=== PATIENT | female | born 1995 | race Caucasian/White ===

== ENCOUNTER 2017-05-14 11:37 | Emergency (ER) | payer MEDICAID, SELFPAY ==
[2017-05-14] MEDS ORDERED: Fluorescein Opthalmic Strip ONE (12:25)
[2017-05-14] MEDS ORDERED: Proparacaine 0.5% Opth 15 ML BOT ONE (12:25)
[2017-05-14] MEDS ORDERED: Moxifloxacin 0.5% Opth Drop 3 ML BOT L EYE SCH (13:30)
== END 2017-05-14 12:50 | disposition home or self-care (01) ==
LOC: ERS 11:37
DX: H10.9 Unspecified conjunctivitis (principal); F41.9 Anxiety disorder, unspecified; F32.9 Major depressive disorder, single episode, unspecified
CPT/HCPCS: 99283

== ENCOUNTER 2017-10-06 10:55 | Emergency (ER) | payer SELFPAY ==
[2017-10-07 17:59] LABS: Chlamydia by PCR DETECTED (NotDetected); GC by PCR Not Detected (NotDetected)
== END 2017-10-06 13:40 | disposition home or self-care (01) ==
LOC: ERS 10:55
DX: F41.9 Anxiety disorder, unspecified; F32.9 Major depressive disorder, single episode, unspecified; R10.2 Pelvic and perineal pain; F17.210 Nicotine dependence, cigarettes, uncomplicated
CPT/HCPCS: 87480; 87491; 87510; 87591; 87660

== ENCOUNTER 2018-08-15 22:53 | Emergency (ER) | payer SELFPAY | END 2018-08-15 23:36 | disposition left against medical advice (07) | LOC: ERS 22:53 | DX: Z53.21 Procedure and treatment not carried out due to patient leaving prior to being seen by health care provider (principal) ==